=== PATIENT | female | born 1970 | race Asian ===

== ENCOUNTER 2020-12-24 09:11 | Day surgery (SDC) | payer OTHER, SELFPAY ==
[~2020-12-24] VITALS: Ht 157.5 cm; Wt 52.6 kg
[2020-12-24] MEDS ORDERED: diphenhydrAMINE 50 MG/ML VIAL ONE (10:51)
[2020-12-24] MEDS ORDERED: MIDAZOLAM 5 MG/5 ML VIAL ONE (10:51)
[2020-12-24] MEDS ORDERED: LIDOCAINE 2% 100 MG/5 ML UJET TP ONE ×2 (10:51→11:15)
[2020-12-24] MEDS ORDERED: fentaNYL citrate 0.05 MG/ML VIAL ONE (10:51)
[2020-12-24] MEDS ORDERED: MIDAZOLAM 2 MG/2 ML VIAL IVP ONE (11:15)
[2020-12-24] MEDS ORDERED: fentaNYL citrate 0.05 MG/ML VIAL IVP ONE (11:15)
== END 2020-12-24 11:25 | disposition home or self-care (01) ==
LOC: MDS 09:11 → MFCC 09:11 → MDS 11:25
PROVIDERS: ATTEND Internal Medicine Gastroenterology
DX: Z12.11 Encounter for screening for malignant neoplasm of colon (principal); Z80.0 Family history of malignant neoplasm of digestive organs; Z79.899 Other long term (current) drug therapy; Z20.822 Contact with and (suspected) exposure to COVID-19
CPT/HCPCS: 45378; 81025; 87426; J2250; J3010; J1200